=== PATIENT | female | born 1975 | race Caucasian/White ===

== ENCOUNTER 2017-08-31 10:17 | Emergency (ER) | payer OTHER ==
[2017-08-31 10:31] VITALS: BMI 23.6
[2017-08-31 11:25] LABS: BASO % 0.7 % (0-2.0); EOS % 2.5 % (0-4.5); HEMATOCRIT 32.4 % (32.4-45.2); HEMOGLOBIN 10.8 GM/dL (10.7-15.3); LYMPH % 20.5 % (8-40); MCH 29.1 pg (25.7-33.7); MCHC 33.3 g/dl (32.0-36.0); MEAN CELL VOLUME 87.3 fl (80-96); MEAN PLT VOLUME 7.9 fl (7.5-11.1); MONO % 7.3 % (3.8-10.2); PLATELET COUNT 320 K/MM3 (134-434); RBC 3.72 M/mm3 (3.60-5.2); RDW 16.1 % (11.6-15.6); WHITE BLOOD COUNT 6.9 K/mm3 (4.0-10.0)
[2017-08-31 11:31] LABS: URINE APPEARANCE SLCLOUDY; URINE BILIRUBIN NEGATIVE (<2.0 mg/dL); URINE BLOOD NEGATIVE (NEGATIVE); URINE COLOR AMBER; URINE GLUCOSE (UA) NEGATIVE (NEGATIVE); URINE KETONE TRACE (NEGATIVE); URINE LEUK ESTERASE TRACE (NEGATIVE); URINE NITRITE POSITIVE (NEGATIVE); URINE UROBILINOGEN NEGATIVE mg/dL (0.2-1.0)
[2017-08-31 11:36] LABS: URINE PROTEIN 1+ (NEGATIVE)
[2017-08-31 11:37] LABS: EPI CELLS RARE /HPF (FEW); URINE BACTERIA MANY /hpf (NONE SEEN); URINE MUCUS MODERATE
[2017-08-31 11:57] LABS: ALBUMIN 3.2 g/dl (3.4-5.0); ANION GAP 12 (8-16); BILIRUBIN,TOTAL 0.4 mg/dL (0.2-1.0); BLOOD UREA NITROGEN 10 mg/dL (7-18); CALCIUM 8.7 mg/dL (8.5-10.1); CHLORIDE 104 mmol/L (98-107); CO2 23 mmol/L (21-32); CREATININE 0.5 mg/dL (0.55-1.02); GLUCOSE,RANDOM 75 mg/dL (74-106); POTASSIUM 3.8 mmol/L (3.5-5.1); SGOT/AST 30 U/L (15-37); SGPT/ALT 52 U/L (12-78); SODIUM 139 mmol/L (136-145)
[2017-08-31 12:12] LABS: ALK PHOS 65 U/L (45-117)
--- NOTE | 2017-08-31 13:03 | PDOC ---
History of Present Illness - General Chief Complaint: Vaginal Bleeding Stated Complaint: 6 WEEKS PREG Time Seen by Provider: 08/31/17 10:38 History Source: Patient Exam Limitations: No Limitations - History of Present Illness Travel History: No Initial Comments: 08/31/17 11:00 41-year-old female approximately 6 weeks based LMP presents to the ED with complaints of small amount of brownish blood while wiping after urinating this morning. Patient has no abdominal pain, nausea vomiting back pain, fever, or weakness. Patient states has not been seen at the clinic for this as of yet and has a first appointment on September 17. Patient has no other complaints at this time. Timing/Duration: reports: other Past History - Travel Traveled outside of the country in the last 30 days: No - Past Medical History Allergies/Adverse Reactions: Allergies Allergy/AdvReac Type Severity Reaction Status Date / Time No Known Allergies Allergy Verified 08/31/17 10:26 Home Medications: Ambulatory Orders NK [No Known Home Medication] 08/31/17 COPD: No - Reproductive History Is Patient Now?: Yes (6 weeks) (#): 4 Para: 3 Spontaneous : 0 - Suicide/Smoking/Psychosocial Hx Smoking History: Never smoked Patient Lives Alone: No Lives with/in: spouse/SO Review of Systems - Review of Systems Able to Perform ROS?: Yes Constitutional: No: Symptoms Reported Respiratory: No: Symptoms reported Cardiac (ROS): No: Symptoms Reported ABD/GI: No: Symptoms Reported : Yes: Discharge Musculoskeletal: No: Symptoms Reported Integumentary: No: Symptoms Reported Neurological: No: Symptoms reported Hematologic/Lymphatic: No: Symptoms Reported *Physical Exam - Vital Signs Last Vital Signs Temp Pulse Resp BP Pulse Ox 98.2 F 95 H 18 116/80 99 08/31/17 10:23 08/31/17 10:23 08/31/17 10:23 08/31/17 10:23 08/31/17 10:23 - Physical Exam General Appearance: Yes: Nourished, Appropriately Dressed. No: Apparent Distress HEENT: negative: Pale Conjunctivae Female Pelvic Exam: positive: normal external exam, cervical os closed, CMT, vaginal bleeding (scant light brown/clifford). negative: discharge, adnexal tenderness Gastrointestinal/Abdominal: positive: Soft, Distended (mild midsuprapubic). negative: Tenderness Integumentary: positive: Normal Color, Warm, Moist Neurologic: positive: Normal Mood/Affect, Motor Strength 5/5 (ambulatory) ED Treatment Course - LABORATORY CBC & Chemistry Diagram: 08/31/17 11:13 08/31/17 11:13 - ADDITIONAL ORDERS Additional order review: Laboratory Results 08/31/17 08/31/17 11:18 11:13 Sodium 139 Potassium 3.8 Chloride 104 Carbon Dioxide 23 Anion Gap 12 BUN 10 Creatinine 0.5 L Creat Clearance w eGFR > 60 Random Glucose 75 Calcium 8.7 Total Bilirubin 0.4 AST 30 ALT 52 Alkaline Phosphatase 65 Total Protein 7.0 Albumin 3.2 L Beta HCG, Quant 76938.1 Urine Color Shayy Urine Appearance Slcloudy Urine pH 6.0 Ur Specific Sun 1.031 Urine Protein 1+ H Urine Glucose (UA) Negative Urine Ketones Trace H Urine Blood Negative Urine Nitrite Positive Urine Bilirubin Negative Urine Urobilinogen Negative Ur Leukocyte Esterase Trace Urine WBC (Auto) 6 Urine RBC (Auto) 2 Ur Epithelial Cells Rare Urine Bacteria Many Urine Mucus Moderate 08/31/17 11:13 RBC 3.72 MCV 87.3 MCHC 33.3 RDW 16.1 H MPV 7.9 Neutrophils % 69.0 Lymphocytes % 20.5 Monocytes % 7.3 Eosinophils % 2.5 Basophils % 0.7 - RADIOLOGY Radiology Studies Ordered: Category Date Time Status <14WKS US [US] Stat Ultrasound 08/31/17 10:51 Completed Medical Decision Making - Medical Decision Making 08/31/17 11:01 Patient here for evaluation of spotting this morning after urinating. Patient has no other complaints at this time and states the proximal me 6 weeks based on her last menstrual period. Patient exam had scant light brown blood in the vault. Differential diagnosis includes vaginal bleeding in , threatened AB, UTI, ectopic Patient ordered for beta hCG, type and screen, CBC, comp, urinalysis, urine culture and ultrasound. 08/31/17 13:02 Laboratory Tests 08/31/17 08/31/17 08/31/17 11:13 11:13 11:18 WBC 6.9 Hgb 10.8 Hct 32.4 Plt Count 320 Neutrophils % 69.0 Sodium 139 Potassium 3.8 Carbon Dioxide 23 Anion Gap 12 BUN 10 Creatinine 0.5 L Creat Clearance w eGFR > 60 Random Glucose 75 Calcium 8.7 Total Bilirubin 0.4 AST 30 ALT 52 Alkaline Phosphatase 65 Beta HCG, Quant 70082.1 Urine Ketones Trace H Urine Nitrite Positive Urine Urobilinogen Negative Ur Leukocyte Esterase Trace Urine RBC (Auto) 2 08/31/17 13:03 Ultrasound shows a single intrauterine gestation at measurements 12 weeks 4 days with heart rate of 1 80 bpm. There is no adnexal masses or free fluid in the pelvis. Patient be discharged home to follow-up at the clinic this week. Patient also recommended to start vitamins. *DC/Admit/Observation/Transfer Diagnosis at time of Disposition: Vaginal bleeding in - Discharge Dispostion Disposition: HOME Condition at time of disposition: Good - Referrals Referrals: Tameka Mitchell MD [Primary Care Provider] - - Patient Instructions Printed Discharge Instructions: DI for Vaginal Bleeding During Additional Instructions: Please start vitamins today and please follow up this week with Brigid Mitchell. Return to the ED at any given time if you develop severe abdominal pain or heavy vaginal bleeding. - Post Discharge Activity
[2017-08-31 13:31] VITALS: BP 107/57; PULSE 78; TEMP 98.3
--- NOTE | 2017-09-02 19:10 | PDOC ---
Patient Follow-up (Call Back) - Post ED Follow - Up Condition at time of discharge: Good Disposition at time of original discharge: HOME Reason for Call Back: Abnwl. 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
== END 2017-08-31 13:15 | disposition home or self-care (01) ==
LOC: JER 10:17
DX: O26.891 Other specified pregnancy related conditions, first trimester (principal); O20.8 Other hemorrhage in early pregnancy; Z3A.12 12 weeks gestation of pregnancy
CPT/HCPCS: 36415; 76801-TC; 80053; 81003; 81015; 84702; 85025; 86850; 86900; 86901; 87086; 87186; 99283-25

== ENCOUNTER 2018-06-11 16:20 | Emergency (ER) | payer SELFPAY ==
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
[2018-06-11 16:31] VITALS: BMI 16.0
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
[2018-06-11] MEDS ORDERED: DEXAMETHASONE 4 MG TABLET (FP) PO ONE (20:15)
[2018-06-11] MEDS ORDERED: DEXAMETHASONE 4 MG TABLET (FP) ONE (20:16)
[2018-06-11 22:46] VITALS: BP 125/72; PULSE 65; TEMP 98.7
== END 2018-06-11 22:00 | disposition short-term general hospital (02) ==
LOC: JERFT 16:20
DX: R07.0 Pain in throat (principal); Y07.03 Male partner, perpetrator of maltreatment and neglect; Y92.9 Unspecified place or not applicable; Y93.9 Activity, unspecified
CPT/HCPCS: 70450-TC; 70486-TC; 70490-TC; 84703; 99281-25